=== PATIENT | male | born 1960 | race Caucasian/White ===

== ENCOUNTER → 2023-05-23 12:05 | Outpatient (REF) | payer OTHER, SELFPAY ==
[2023-05-23 13:50] LABS: Blood Urea Nitrogen 35 mg/dl (9-20); Calcium 9.8 mg/dl (8.4-10.2); Carbon Dioxide 27 mmol/L (22-30); Chloride 102 mmol/L (98-107); Glucose 107 mg/dl (70-99); Potassium 4.1 mmol/L (3.5-5.1); Sodium 136 mmol/L (135-145); eGFR > 60.00
[2023-05-23 14:18] LABS: % Basophils 1.6 % (0-2); % Eosinophils 4.4 % (0-6); % Immature Granulocytes 0.2 % (0-0.5); % Lymphocytes 15.6 % (20.5-51.1); % Monocytes 9.9 % (1.7-9.3); % Neutrophils 68.3 % (42.2-75.2); Absolute Basophils 0.1 10^3/uL (0-0.2); Absolute Eosinophils 0.3 10^3/uL (0-0.7); Absolute Monocytes 0.6 10^3/uL (0.1-0.6); Absolute Neutrophils 4.3 10^3/uL (1.4-6.5); Hematocrit 45.1 % (39.0-52.0); Hemoglobin 16.1 g/dL (13.0-18.0); Mean Corp Hgb Conc. 35.7 g/dL (33.0-37.0); Mean Corpuscular Hgb 32.1 pg (27.0-31.0); Mean Corpuscular Volume 89.8 fL (80.0-94.0); Mean Platelet Volume 9.4 fL (7.4-10.4); Nucleated Red Blood Cells % 0 % (-); Platelet Count 246 10^3/uL (130-400); Red Blood Cell Count 5.02 10^6/uL (4.70-6.10); Red Cell Dist. Width 12.6 % (11.5-14.5); White Blood Cell Count 6.4 10^3/uL (4.8-10.8)
== END ==
LOC: HWCARD 12:05
PROVIDERS: ATTENDING PHYSICIAN Specialist; FAMILY PHYSICIAN Family Medicine
DX: Z01.818 Encounter for other preprocedural examination (principal)
CPT/HCPCS: 36415; 80048; 85025; 93005

== ENCOUNTER → 2024-10-29 16:25 | Outpatient (REF) | payer OTHER, SELFPAY | LOC: RAD 16:25 | PROVIDERS: ATTENDING PHYSICIAN Specialist; FAMILY PHYSICIAN Family Medicine | DX: R31.0 Gross hematuria (principal) | CPT/HCPCS: 74178; Q9967 ==

== ENCOUNTER 2025-02-20 06:39 | Day surgery (SDC) | payer OTHER, SELFPAY ==
[2025-02-13 08:59] LABS: Hematocrit 48.0 % (39.0-52.0); Hemoglobin 16.3 g/dL (13.0-18.0); Mean Corp Hgb Conc. 34.0 g/dL (33.0-37.0); Mean Corpuscular Volume 92.3 fL (80.0-94.0); Platelet Count 232 10^3/uL (130-400); Red Cell Dist. Width 12.8 % (11.5-14.5)
[2025-02-13 14:06] VITALS: BMI 25.8
[2025-02-14 10:32] LABS: Blood Urea Nitrogen 31 mg/dl (9-20); Calcium 9.8 mg/dl (8.4-10.2); Carbon Dioxide 30 mmol/L (22-30); Chloride 99 mmol/L (98-107); Estimated Creatinine Clearance 82 ml/min; Glucose 98 mg/dl (70-99); Potassium 4.9 mmol/L (3.5-5.1); Sodium 133 mmol/L (135-145); eGFR > 60.00
[2025-02-20] VITALS (7 sets, daily range): BP systolic 113–164; BP diastolic 56–86; BMI 25.8
[2025-02-20] MEDS: NORMOSOL-R/PLASMALYTE-A 1000 IV (11:26)
== END 2025-02-20 15:10 | disposition home or self-care (01) ==
LOC: SDS 06:39
PROVIDERS: ATTENDING PHYSICIAN Specialist; FAMILY PHYSICIAN Family Medicine
DX: N32.0 Bladder-neck obstruction (principal); R33.9 Retention of urine, unspecified
CPT/HCPCS: 52281; 80048; 85027; 93005